=== PATIENT | female | born 1960 | race Caucasian/White ===

== ENCOUNTER 2016-12-18 08:16 | Day surgery (SDC) | payer OTHER ==
[~2016-12-18] VITALS: Ht 162.6 cm; Wt 51.0 kg
[~2016-12-18 08:16] MED LIST: IBUPROFEN200 M2 PO
[2016-12-18] MEDS ORDERED: D3-5050000 IU PO (09:00)
[2016-12-18] MEDS ORDERED: PROBIOTIC-SUNMARK PO (09:00)
[2016-12-18] MEDS ORDERED: WOMEN'S DAILY F1 TAB PO (09:00)
[2016-12-18] MEDS ORDERED: OMEGA-31 SGL PO (09:01)
[2016-12-18] MEDS ORDERED: VITAMIN B COMPL1 T16 PO (09:03)
[2016-12-18] MEDS ORDERED: [UNRECOGNIZED DRUG - OTHER] PO (09:03)
[2016-12-18] MEDS ORDERED: SLOW-MAG 6464 MG/TAB PO (09:04)
[2016-12-18] MEDS ORDERED: [UNRECOGNIZED DRUG - OTHER] PO (09:06)
[2016-12-18] MEDS ORDERED: [UNRECOGNIZED DRUG - OTHER] PO (09:06)
[2016-12-18] MEDS ORDERED: UBIQUINONE PO (09:07)
[2016-12-18] MEDS ORDERED: THE MEDICINE S200 M2 PO (09:07)
[2016-12-18 09:10] VITALS: BP 117/64; PULSE 55; TEMP 97.6
[2016-12-18 10:20] VITALS: BP 120/64; PULSE 62; TEMP 98.6
[2016-12-18 10:35] VITALS: BP 118/63; PULSE 52
[2016-12-18 10:50] VITALS: BP 110/72; PULSE 53
[2016-12-18] MEDS ORDERED: NORCO 325 MG-51 TAB PO (11:03)
[2016-12-18 11:05] VITALS: BP 112/73; PULSE 51
== END 2016-12-18 11:25 | disposition home or self-care (01) ==
LOC: SDCO 08:16
DX: C50.411 Malignant neoplasm of upper-outer quadrant of right female breast (principal)
CPT/HCPCS: C1788; J0690; J1644; J2704; J3010

== ENCOUNTER → 2021-05-18 | Outpatient (CLI) | payer OTHER ==
[~2021-05-18] MED LIST changes: +D3-5050000 IU PO; +NORCO 325 MG-51 TAB PO; +OMEGA-31 SGL PO; +PROBIOTIC-SUNMARK PO; +SLOW-MAG 6464 MG/TAB PO; +THE MEDICINE S200 M2 PO; +UBIQUINONE PO; +VITAMIN B COMPL1 T16 PO; +WOMEN'S DAILY F1 TAB PO; +[UNRECOGNIZED DRUG - OTHER] PO; +[UNRECOGNIZED DRUG - OTHER] PO; +[UNRECOGNIZED DRUG - OTHER] PO
== END ==
LOC: COL.RAD 11:18
DX: Q62.11 Congenital occlusion of ureteropelvic junction (principal)
CPT/HCPCS: A9562; J1940